=== PATIENT | female | born 1965 | race Caucasian/White ===

== ENCOUNTER 2018-05-29 15:33 | Emergency (ER) | payer OTHER ==
[2018-05-29] MEDS: HYDROCODONE/APAP (5/325) TAB PO (17:36)
[2018-05-29] MEDS: KETOROLAC 30 MG INJ IM (20:53)
== END 2018-05-30 06:47 | disposition home or self-care (01) ==
LOC: E/R 05-30 06:47
DX: S16.1XXA Strain of muscle, fascia and tendon at neck level, initial encounter (principal); S93.402A Sprain of unspecified ligament of left ankle, initial encounter; S20.212A Contusion of left front wall of thorax, initial encounter; R40.2142 Coma scale, eyes open, spontaneous, at arrival to emergency department; R40.2252 Coma scale, best verbal response, oriented, at arrival to emergency department; R40.2362 Coma scale, best motor response, obeys commands, at arrival to emergency department; V89.2XXA Person injured in unspecified motor-vehicle accident, traffic, initial encounter
CPT/HCPCS: 70450; 71046; 72125; 96372; 99285-25